=== PATIENT | female | born 1990 | race Caucasian/White ===

== ENCOUNTER → 2019-12-02 08:21 | Outpatient (CLI) | payer OTHER, SELFPAY ==
[2019-12-02 08:47] LABS: Hematocrit 38.5 % (36-46); Hemoglobin 12.6 g/dL (12.0-16.0); Mean Corpuscular HGB Conc 32.6 % (30-36); Mean Corpuscular Hemoglobin 29.2 PG (26-34); Mean Corpuscular Volume 89.7 fL (80-100); Platelet Count 259 X10^3/uL (150-400); Red Cell Distribution Width 13.7 % (11.6-14.8)
[2019-12-02 08:51] LABS: Appearance Urine UA CLEAR; Bilirubin Urine UA NEGATIVE (NEGATIVE); Color Urine UA YELLOW; Glucose Urine UA NEGATIVE (Negative); Ketones Urine UA NEGATIVE (NEGATIVE); Leukocyte Esterase Urine UA TRACE (NEGATIVE); Nitrite Urine UA NEGATIVE (Negative); Occult Blood Urine UA 2+ (Negative); Protein Urine UA NEGATIVE (Negative); Specific Gravity Urine UA <=1.005 (1.000-1.035); Urobilinogen Urine UA 0.2 E.U./dL (0.2)
[2019-12-02 09:15] LABS: Alanine Aminotransferase 13 IU/L (<35); Albumin 4.2 g/dL (3.5-5.0); Albumin Globulin Ratio 1.8 (1.0-2.8); Alkaline Phosphatase 45 U/L (38-126); Aspartate Aminotransferase 26 IU/L (14-36); Bilirubin Total 0.3 mg/dL (0.2-1.3); Blood Urea Nitrogen 13 mg/dL (7-17); Calcium 9.5 mg/dL (8.4-10.2); Carbon Dioxide 28 mmol/L (22-32); Chloride 104 mmol/L (98-107); Cholesterol 137 mg/dL (140-199); Estimated Glomerular Filt Rate > 60.0 mL/min (>60); Globulin 2.4 g/dL (1.7-4.1); Glucose 87 mg/dL (70-100); HDL Cholesterol 72 mg/dL (40-60); HEMOLYSIS < 15 (0-50); LDL Cholesterol Calculated 56 mg/dL (<100); Potassium 4.3 mmol/L (3.4-5.1); Sodium 137 mmol/L (137-145); Total Protein 6.6 g/dL (6.3-8.2); Triglycerides 47 mg/dL (35-150)
[2019-12-02 10:06] LABS: Bacteria Urine Many (>30); Culture Indicated Urine Specimen Cultured; RBC Urine 1-5/HPF (0-5/HPF); Squamous Epithelial Cell Urine 1-5 /HPF (0-5/HPF); WBC Urine 1-5/HPF (0-5/HPF)
== END ==
PROVIDERS: PCP Nurse Practitioner Family; Referring Provider Nurse Practitioner Family; Visit Provider Nurse Practitioner Family
DX: Z13.6 Encounter for screening for cardiovascular disorders (principal); Z85.528 Personal history of other malignant neoplasm of kidney
CPT/HCPCS: 36415; 80053; 80061; 81001; 85027; 87086

== ENCOUNTER → 2020-03-18 12:21 | Outpatient (CLI) | payer OTHER, SELFPAY ==
[2020-03-18 13:19] LABS: Hematocrit 39.7 % (36-46); Hemoglobin 13.4 g/dL (12.0-16.0); Mean Corpuscular HGB Conc 33.7 % (30-36); Mean Corpuscular Hemoglobin 29.8 PG (26-34); Mean Corpuscular Volume 88.5 fL (80-100); Platelet Count 225 X10^3/uL (150-400); Red Blood Cell Count 4.49 X10^6/uL (4.0-5.2); Red Cell Distribution Width 13.5 % (11.6-14.8); White Blood Cell Count 6.6 X10^3/uL (4.5-11.0)
[2020-03-18 13:29] LABS: BUN Creatinine Ratio 20.7 (6-22); Blood Urea Nitrogen 12 mg/dL (7-17); Calcium 9.5 mg/dL (8.4-10.2); Carbon Dioxide 28 mmol/L (22-32); Chloride 106 mmol/L (98-107); Estimated Glomerular Filt Rate > 60.0 mL/min (>60); Glucose 95 mg/dL (70-100); HEMOLYSIS < 15 (0-50); Potassium 4.5 mmol/L (3.4-5.1); Sodium 136 mmol/L (137-145)
== END ==
PROVIDERS: PCP Nurse Practitioner Family; Referring Provider Nurse Practitioner Family; Visit Provider Nurse Practitioner Family
DX: Z00.00 Encounter for general adult medical examination without abnormal findings (principal); R10.2 Pelvic and perineal pain
CPT/HCPCS: 36415; 80048; 85027

== ENCOUNTER → 2020-03-22 10:38 | Outpatient (CLI) | payer OTHER, SELFPAY ==
--- NOTE | 2020-03-22 10:39 | DI.US.S_ITS ---
PROCEDURE: US PELVIC COMPLETE INDICATIONS: pelvic pain, right lower TECHNIQUE: Real-time scanning was performed of the pelvic organs, with image documentation. Additional endovaginal scanning was necessary due to incomplete visualization of the adnexal and endometrial structures by transabdominal scanning. COMPARISON: None. 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 The right kidney is unremarkable. No pathologic free abdominal or pelvic fluid. Endovaginal scanning: Uterus: Uterus is normal in size at 8.6 x 4.6 x 5.7 cm. The endometrium measures 9 mm in combined thickness. Ovaries: The right ovary measures 6 x 3.6 x 3.2 cm. Within the right ovary, there is a potential solid mass seen that measures 3.7 x 3.9 x 3.5 cm. The left ovary measures 3.9 x 3 x 1.6 cm and demonstrates an unremarkable sonographic appearance. IMPRESSION: Potential solid right ovarian mass. Differential diagnosis includes a hemorrhagic cyst, however. At clinical discretion, a followup pelvic ultrasound is suggested in 6 weeks to assure resolution/ improvement. If this does not resolve on follow-up ultrasound, than a dedicated gynecological protocol MRI would be recommended. Prior left kidney removal. Dictated by: Khang Tanner M.D. on 03/22/2020 at 12:13 Approved by: Khang Tanner M.D. on 03/22/2020 at 12:15
== END ==
PROVIDERS: PCP Nurse Practitioner Family; Referring Provider Nurse Practitioner Family; Visit Provider Nurse Practitioner Family
DX: R10.2 Pelvic and perineal pain (principal); N83.9 Noninflammatory disorder of ovary, fallopian tube and broad ligament, unspecified; Z90.5 Acquired absence of kidney
CPT/HCPCS: 76830; 76856

== ENCOUNTER → 2020-03-31 09:19 | Outpatient (CLI) | payer OTHER, SELFPAY ==
[2020-04-02 11:15] LABS: Human Epididymis Prot 4 43.8 pmol/L (0.0-61.2)
== END ==
PROVIDERS: Specialist; PCP Nurse Practitioner Family; Referring Provider Nurse Practitioner Family; Visit Provider Nurse Practitioner Family
DX: N83.8 Other noninflammatory disorders of ovary, fallopian tube and broad ligament (principal)
CPT/HCPCS: 36415; 86304; 86305

== ENCOUNTER → 2020-04-04 08:49 | Outpatient (CLI) | payer OTHER, SELFPAY ==
[2020-04-04 09:24] LABS: COVID19 -Nasal RAPID Negative (Negative)
== END ==
PROVIDERS: PCP Nurse Practitioner Family; Visit Provider Specialist
DX: Z03.818 Encounter for observation for suspected exposure to other biological agents ruled out (principal)
CPT/HCPCS: 87635

== ENCOUNTER 2020-04-05 11:25 | Day surgery (SDC) | payer OTHER, SELFPAY ==
[2020-04-01 14:58] VITALS: BMI 18.8
[2020-04-05] VITALS (12 sets, daily range): BP systolic 111–127; BP diastolic 52–76; PULSE 65–84; RESP 10–16; TEMP 36.1–36.9; O2SAT 98–100; BMI 18.8
--- NOTE | 2020-04-05 | PATH_ITS ---
[facility] Accession Number: [id number] . 01 Material submitted: . PART A: fallopian tube - RIGHT FALLOPIAN TUBE AND OVARY PART B: endometrium - ENDOMETRIOSIS . 01 Clinical history: . SDC . 02 Diagnosis: A. Right Fallopian Tube and Ovary, Laparoscopic Right Salpingo-oophorectomy with Resection of Peritoneal Endometriosis: Ovary with multiple benign serous and follicular cysts (1-12 mm in greatest dimension); negative for epithelial atypia or malignancy. Complete cross-sections of segment of fallopian tube x1. . B. Endometriosis: Positive for involvement by endometriosis. MRV 04/08/2020 1441 Local . 02 Electronically signed: . Taina Schroeder MD, Pathologist NPI- [id number] . 01 Gross description: . A. Specimen A is received in formalin, labeled right fallopian tube and ovary and consists of an 11 gram, 5.0 x 2.5 x 2.0 cm ovary. The external surface is blanton-pink to pink-purple, focally disrupted and smooth. Sectioning reveals multiple unilocular, smooth walled, serous-filled cysts ranging from 0.1 to 1.2 cm. No papillary excrescences are identified. Also, received is a 5.0 cm in length x 0.8 cm in diameter detached fallopian tube with a pink-purple smooth serosa. Sectioning reveals a blanton mucosa and a pinpoint to stellate lumen measuring up to 0.3 cm in diameter. [employer] sections are submitted. . A1-A2 - [employer]st ovary. A3-A4 - Fallopian tube, central cross-sections, margin (en face) black, and bisected fimbria. B. Specimen B is received in formalin, labeled endometriosis and consists of two blanton fragments of soft tissue, measuring 1.0 x 0.6 x 0.3 cm in aggregate. The specimen is entirely submitted in cassette B1. ([id number]) /ON LICENSE OF [facility] 04/06/[address] [place] [address] . 02 Pathologist provided ICD-10: N83.8, R10.2, N80.9 . 02 CPT . 295935, [id number] Performed at: 01 [facility] [address] [id number] MD Valentin Levine MD Phone: [phone] Performed at: 02 [facility] [id number] [place], [place] [id number] MD Marian Fowler MD Phone: [phone]
[2020-04-05] MEDS: LACTATED RINGERS 1,000 ML 42 ML IV (12:12)
--- NOTE | 2020-04-05 14:06 | PM.PREOP ---
Pre-operative Note COVID-19 COVID-19 status: Negative Result date/Date tested (Pos, Neg/Pending): 04/04/20 Interval Note History & Physical reviewed/Exam performed by Physician: Yes Changes to H&P: No
--- NOTE | 2020-04-05 14:18 | SUR.OPER ---
Lithotomy on padded OR bed, head on pillow, arms secured on padded arm boards at <90 degrees abduction. Legs secured in padded yellow fins stirrups.
[2020-04-05] MEDS: BUPIVACAINE 0.5% W/ EPI (PF) 30 ML VIAL INJ (14:48)
--- NOTE | 2020-04-05 14:58 | PM.OP.1 ---
Operative Date/Time/Diagnoses Date of procedure: 04/05/20 Time of procedure: 14:58 Pre-op diagnosis: Right lower quadrant pain with solid right ovarian mass Post-op diagnosis: same (Also Peritoneal endometriosis) Procedure & Clinicians Procedure: Laparoscopic right salpingo oophorectomy with resection of peritoneal endometriosis Same procedure as scheduled: Yes (With the addition of resection of peritoneal endometriosis) Indications: Right lower quadrant pain with solid appearing mass n right ovary by ultrasound Surgeon: Brooke Arora Click Yes if Unassisted: Yes Anesthesia Type: General Operative Notes Findings: Significant adhesions of the bowel to the upper abdominal incision. Normal uterus and fallopian tubes. Decreased size of right ovarian mass. Perineal endometriosis in the right broad ligament below the ureter Closure Type: primary Specimen(s): other (Right tube and ovary and peritoneal biopsies) Estimated Blood Loss (mL): 1 Blood products transfused: none Procedure in detail: Patient was brought to the operating room where she underwent general anesthesia. She was placed in low [facility] stirrups and prepped and draped in usual sterile fashion. Pulsatile stockings were in place and functional. Warming was with blankets. A single-tooth tenaculum was placed on the anterior lip of the cervix and the cervix dilated to #6 Hegar dilator. The Rahel uterine manipulator was placed and balloon inflated with 3 mL of air. The area of the incisions were injected with half percent Marcaine with epinephrine. An incision was made in the umbilicus with a scalpel and the Verres needle placed in the abdomen. Confirmation of correct placement of the needle was performed by withdrawing on the syringe and then allowing fluid to fall freely through the needle. The abdomen was insufflated to 3 L of CO2. A 5 mm trocar was placed under direct visualization. 2 other 5 mm trochars were placed in the right and left lower quadrant under direct visualization after incising the skin. There did not appear to be any damage with placement of the trocars. The right fallopian tube was grasped and the infundibulopelvic ligament was cauterized and cut using the PK cauterization.. Sequential bites were taken along the broad ligament hugging close to the ovary staying well away from the visible ureter. The utero-ovarian ligament was cauterized and cut and the junction of the fallopian tube to the uterus was cauterized along removal of the tube and ovary intact. The peritoneum areas of endometriosis were grasped and resected using sharp dissection. Bleeding was controlled with the PK making sure to stay well away from the visible ureter. In area in the suprapubic site was injected with 0.5% Marcaine with epinephrine. A 11 mm trocar was placed under direct visualization without any damage. An Endo-Catch bag was placed through the trocar. The tube and ovary were placed in the Endo-Catch bag and were brought up out of the abdomen. There was no spillage of tissue. Adequate hemostasis was noted. The CO2 was allowed to escape from the abdomen. The trochars were removed. The suprapubic incision fascia was repaired with 0 Vicryl suture. Skin was closed with 4-0 monocryl. The patient went to recovery room in good condition. Complications: none Post-operative Condition: stable Disposition: same day surgery Plan for aftercare: Home when awake and stable. Treatment and follow-up based on biopsy results.
[2020-04-05] MEDS: MEPERIDINE 50 MG/ML INJ 25 MG IV (15:29)
== END 2020-04-05 16:16 | disposition home or self-care (01) ==
PROVIDERS: PCP Nurse Practitioner Family; Referring Provider Specialist; Visit Provider Specialist
PROC: (CPT 58661; principal; 2020-04-05 13:15)
DX: N80.3 Endometriosis of pelvic peritoneum (principal); N83.8 Other noninflammatory disorders of ovary, fallopian tube and broad ligament; K66.0 Peritoneal adhesions (postprocedural) (postinfection); N83.01 Follicular cyst of right ovary
CPT/HCPCS: 58661; 58662; 81025; J1100; J1885; J2175; J2250; J2405; J2704; J3010

== ENCOUNTER → 2020-04-13 08:35 | Outpatient (CLI) | payer OTHER, SELFPAY ==
[2020-04-13 08:44] LABS: RBC Urine None Seen (0-5/HPF); WBC Urine None Seen (0-5/HPF)
[2020-04-13 09:32] LABS: Appearance Urine UA CLEAR; Bilirubin Urine UA NEGATIVE (NEGATIVE); Color Urine UA YELLOW; Glucose Urine UA TRACE g/dL (Negative); Ketones Urine UA NEGATIVE (NEGATIVE); Leukocyte Esterase Urine UA NEGATIVE (NEGATIVE); Nitrite Urine UA NEGATIVE (Negative); Occult Blood Urine UA NEGATIVE (Negative); Protein Urine UA NEGATIVE (Negative); Specific Gravity Urine UA 1.025 (1.000-1.035); Urobilinogen Urine UA 0.2 E.U./dL (0.2)
[2020-04-13 09:38] LABS: pH Urine UA 5.5 (4.5-8.0)
[2020-04-13 09:48] LABS: Amorphous Sediment Urine 1+; Bacteria Urine Occasional (0-1); Culture Indicated Urine Cult Not Indicated; Squamous Epithelial Cell Urine 1-5 /HPF (0-5/HPF)
== END ==
PROVIDERS: PCP Nurse Practitioner Family; Referring Provider Specialist; Visit Provider Specialist
DX: N39.0 Urinary tract infection, site not specified (principal); N99.89 Other postprocedural complications and disorders of genitourinary system; R39.9 Unspecified symptoms and signs involving the genitourinary system
CPT/HCPCS: 81001

== ENCOUNTER → 2020-05-21 08:23 | Outpatient (CLI) | payer OTHER, SELFPAY ==
[2020-05-21 08:52] LABS: COVID19 -Nasal RAPID Negative (Negative)
== END ==
PROVIDERS: PCP Nurse Practitioner Family; Visit Provider Nurse Practitioner
DX: R05 Cough (principal); Z20.822 Contact with and (suspected) exposure to COVID-19
CPT/HCPCS: 87635

== ENCOUNTER → 2020-06-24 13:40 | Outpatient (CLI) | payer OTHER, SELFPAY ==
[2020-06-24 14:23] LABS: COVID19 -Nasal RAPID Negative (Negative)
[2020-06-24 14:42] LABS: Influenza A - CEPHEID Flu A NEGATIVE (NEGATIVE); Influenza B - CEPHEID Flu B NEGATIVE (NEGATIVE)
== END ==
PROVIDERS: PCP Nurse Practitioner Family; Visit Provider Family Medicine
DX: R05 Cough (principal); Z20.822 Contact with and (suspected) exposure to COVID-19
CPT/HCPCS: 87502; 87635

== ENCOUNTER → 2020-08-05 09:09 | Outpatient (CLI) | payer OTHER, SELFPAY ==
[2020-08-05] MEDS: COVID-19 VACC #1, MRNA(MOD) 100 MCG/0.5 ML VIAL IM (09:16)
== END ==
PROVIDERS: PCP Nurse Practitioner Family; Visit Provider Internal Medicine
DX: Z23 Encounter for immunization (principal)
CPT/HCPCS: 0011A; 91301

== ENCOUNTER → 2020-08-07 12:56 | Outpatient (CLI) | payer OTHER, SELFPAY | PROVIDERS: PCP Nurse Practitioner Family; Visit Provider Physician Assistant | DX: R30.0 Dysuria (principal) | CPT/HCPCS: 87077; 87086; 87186 ==

== ENCOUNTER → 2020-09-02 09:09 | Outpatient (CLI) | payer OTHER, SELFPAY ==
[2020-09-02] MEDS: COVID-19 VACC #2, MRNA(MOD) 100 MCG/0.5 ML VIAL IM (09:17)
== END ==
PROVIDERS: PCP Nurse Practitioner Family; Visit Provider Internal Medicine
DX: Z23 Encounter for immunization (principal)
CPT/HCPCS: 0012A; 91301

== ENCOUNTER → 2021-04-21 08:22 | Outpatient (CLI) | payer OTHER, SELFPAY ==
[2021-04-21 09:20] LABS: Appearance Urine UA CLEAR; Bilirubin Urine UA NEGATIVE (NEGATIVE); Color Urine UA YELLOW; Glucose Urine UA NEGATIVE (Negative); Ketones Urine UA NEGATIVE (NEGATIVE); Leukocyte Esterase Urine UA NEGATIVE (NEGATIVE); Nitrite Urine UA NEGATIVE (Negative); Occult Blood Urine UA NEGATIVE (Negative); Protein Urine UA NEGATIVE (Negative); Urobilinogen Urine UA 0.2 E.U./dL (0.2)
[2021-04-21 09:21] LABS: Hematocrit 36.8 % (36-46); Hemoglobin 12.5 g/dL (12.0-16.0); Mean Corpuscular HGB Conc 33.9 % (30-36); Mean Corpuscular Hemoglobin 29.5 PG (26-34); Platelet Count 296 X10^3/uL (150-400); Red Blood Cell Count 4.23 X10^6/uL (4.0-5.2); Red Cell Distribution Width 13.1 % (11.6-14.8); White Blood Cell Count 6.3 X10^3/uL (4.5-11.0)
[2021-04-21 09:34] LABS: Alanine Aminotransferase 11 IU/L (<35); Albumin 4.3 g/dL (3.5-5.0); Albumin Globulin Ratio 1.7 (1.0-2.8); Alkaline Phosphatase 50 U/L (38-126); Amorphous Sediment Urine 1+; Aspartate Aminotransferase 20 IU/L (14-36); BUN Creatinine Ratio 11.6 (6-22); Bacteria Urine None Seen; Bilirubin Total 0.5 mg/dL (0.2-1.3); Blood Urea Nitrogen 8 mg/dL (7-17); C-Reactive Protein Quant < 0.5 mg/dL (<1.0); Calcium 9.7 mg/dL (8.4-10.2); Carbon Dioxide 26 mmol/L (22-32); Chloride 103 mmol/L (98-107); Cholesterol 129 mg/dL (140-199); Culture Indicated Urine Cult Not Indicated; Erythrocyte Sedimentation Rate 6 MM/HR (0-20); Estimated Glomerular Filt Rate > 60.0 mL/min (>60); Globulin 2.6 g/dL (1.7-4.1); Glucose 89 mg/dL (70-100); HDL Cholesterol 72 mg/dL (40-60); HEMOLYSIS < 15 (0-50); LDL Cholesterol Calculated 48 mg/dL (<100); Potassium 4.8 mmol/L (3.4-5.1); RBC Urine None Seen (0-5/HPF); Sodium 137 mmol/L (137-145); Squamous Epithelial Cell Urine 1-5 /HPF (0-5/HPF); Total Protein 6.9 g/dL (6.3-8.2); Triglycerides 46 mg/dL (35-150); WBC Urine None Seen (0-5/HPF)
== END ==
PROVIDERS: Family Provider Nurse Practitioner Family; PCP Nurse Practitioner Family; Referring Provider Nurse Practitioner Family; Visit Provider Nurse Practitioner Family
DX: R51.9 Headache, unspecified (principal); Z00.00 Encounter for general adult medical examination without abnormal findings; Z85.528 Personal history of other malignant neoplasm of kidney; Z13.6 Encounter for screening for cardiovascular disorders
CPT/HCPCS: 36415; 80053; 80061; 81001; 85027; 85651; 86140

== ENCOUNTER → 2021-06-01 12:16 | Outpatient (CLI) | payer OTHER, SELFPAY ==
[2021-06-01 12:57] LABS: Appearance Urine UA CLEAR; Bilirubin Urine UA NEGATIVE (NEGATIVE); Color Urine UA YELLOW; Glucose Urine UA NEGATIVE (Negative); Ketones Urine UA NEGATIVE (NEGATIVE); Leukocyte Esterase Urine UA NEGATIVE (NEGATIVE); Nitrite Urine UA NEGATIVE (Negative); Occult Blood Urine UA TRACE-INTACT (Negative); Protein Urine UA NEGATIVE (Negative); Specific Gravity Urine UA <=1.005 (1.000-1.035); Urobilinogen Urine UA 0.2 E.U./dL (0.2); pH Urine UA 6.5 (4.5-8.0)
[2021-06-01 13:06] LABS: Bacteria Urine Occasional (0-1); Culture Indicated Urine Cult Not Indicated; RBC Urine 0-1/HPF (0-5/HPF); Squamous Epithelial Cell Urine 0-1 /HPF (0-5/HPF); WBC Urine 0-1/HPF (0-5/HPF)
== END ==
PROVIDERS: Family Provider Nurse Practitioner Family; PCP Nurse Practitioner Family; Referring Provider Nurse Practitioner Family; Visit Provider Nurse Practitioner Family
DX: Z85.528 Personal history of other malignant neoplasm of kidney (principal)
CPT/HCPCS: 81001

== ENCOUNTER → 2022-06-05 08:07 | Outpatient (CLI) | payer OTHER, SELFPAY ==
[2022-06-05 08:34] LABS: Hematocrit 37.5 % (36-46); Hemoglobin 12.7 g/dL (12.0-16.0); Mean Corpuscular HGB Conc 33.8 % (30-36); Mean Corpuscular Hemoglobin 29.7 PG (26-34); Platelet Count 214 X10^3/uL (150-400); Red Blood Cell Count 4.26 X10^6/uL (4.0-5.2); Red Cell Distribution Width 13.8 % (11.6-14.8); White Blood Cell Count 5.7 X10^3/uL (4.5-11.0)
[2022-06-05 09:01] LABS: Alanine Aminotransferase 16 IU/L (<35); Albumin 3.9 g/dL (3.5-5.0); Albumin Globulin Ratio 1.4 (1.0-2.8); Alkaline Phosphatase 48 U/L (38-126); Aspartate Aminotransferase 23 IU/L (14-36); BUN Creatinine Ratio 21.9 (6-22); Bilirubin Total 0.5 mg/dL (0.2-1.3); Blood Urea Nitrogen 14 mg/dL (7-17); Carbon Dioxide 26 mmol/L (22-32); Chloride 106 mmol/L (98-107); Cholesterol 125 mg/dL (140-199); Estimated Glomerular Filt Rate > 60 mL/min (>60); Globulin 2.7 g/dL (1.7-4.1); Glucose 90 mg/dL (70-100); HDL Cholesterol 76 mg/dL (40-60); HEMOLYSIS < 15 (0-50); LDL Cholesterol Calculated 42 mg/dL (<100); Potassium 4.5 mmol/L (3.4-5.1); Sodium 136 mmol/L (137-145); Total Protein 6.6 g/dL (6.3-8.2); Triglycerides 37 mg/dL (35-150)
== END ==
PROVIDERS: Family Provider Nurse Practitioner Family; PCP Nurse Practitioner Family; Referring Provider Nurse Practitioner Family; Visit Provider Nurse Practitioner Family
DX: Z00.00 Encounter for general adult medical examination without abnormal findings (principal); Z13.6 Encounter for screening for cardiovascular disorders
CPT/HCPCS: 36415; 80053; 80061; 85027